=== PATIENT | male | born 1970 | race Caucasian/White ===

== ENCOUNTER 2019-03-15 05:00 | Emergency (ER) | payer OTHER ==
[2019-03-15] MEDS ORDERED: ASPIRIN 81 MG TABLET, CHEWABLE PO ONE (05:31)
[2019-03-15] MEDS ORDERED: NORMAL SALINE 1000 ML 1,000 ML IV PRN (05:31)
[2019-03-15] MEDS ORDERED: ENOXAPARIN SODIUM INJ 30 MG/0.3 ML DISP.SYRIN IV ONE (05:31)
[2019-03-15] MEDS ORDERED: TENECTEPLASE INJ 50 MG KIT IV ONE ×2 (05:31→10:45)
[2019-03-15] MEDS ORDERED: CLOPIDOGREL BISULFATE 300 MG TABLET PO ONE (05:31)
[2019-03-15] MEDS ORDERED: MORPHINE SULFATE 10 MG/ML INJ IV ONE ×2 (05:31→06:02)
[2019-03-15 05:33] LABS: ABSOLUTE BASOPHILS # (AUTO) 0.1 10^3/uL (0.0-0.2); ABSOLUTE EOSINOPHILS # (AUTO) 0.3 10^3/uL (0.0-0.6); ABSOLUTE LYMPHOCYTES (AUTO) 4.2 10^3/uL (0.5-4.7); ABSOLUTE MONOCYTES (AUTO) 0.8 10^3/uL (0.1-1.4); ABSOLUTE NEUT (AUTO) 4.7 10^3/uL (1.7-8.2); BASOPHILS % (AUTO) 0.6 % (0-2); EOSINOPHILS % (AUTO) 2.6 % (0-6); HEMATOCRIT 47.5 % (37.9-51.0); HEMOGLOBIN 16.4 g/dL (13.5-17.0); LYMPHOCYTES % (AUTO) 42.1 % (13-45); MEAN CORPUSCULAR HEMOGLOBIN 31.3 pg (27.0-33.4); MEAN CORPUSCULAR HGB CONC 34.5 g/dL (32.0-36.0); MEAN CORPUSCULAR VOLUME 91 fl (80-97); PLATELET COUNT 224 10^3/uL (150-450); RED BLOOD COUNT 5.23 10^6/uL (4.35-5.55); RED CELL DISTRIBUTION WIDTH 13.2 % (11.5-14.0); SEGMENTED NEUTROPHILS % (AUTO) 46.7 % (42-78); TOTAL CELLS COUNTED % (AUTO) 100 %
--- NOTE | 2019-03-15 05:38 | ER Document Report ---
ED Cardiac - General Chief Complaint: Chest Pain > 30 Stated Complaint: CHEST PAIN Time Seen by Provider: 03/15/19 05:25 Primary Care Provider: CORNELIUS ZALDIVAR [NO EZRA MD] - Follow up as needed Mode of Arrival: Ambulatory Information source: Patient - HPI Patient complains to provider of: Chest pain, Chest tightness, Shortness of breath Was the onset of pain: Gradual Is the pain a: New problem Chest pain location: Substernal Quality of pain: Severe, Heaviness, Pressure Chest pain radiation location: Left jaw, Right jaw Severity now: Severe Severity at worst: Severe Pain level currently: 5 Chest pain precipitating factors: Earlier last p.m. while walking in the yard patient noted that he did not feel well and could not describe to his the reason for not feeling well at that time. Cardiac risk factors: Diabetes, Hypertension Positive cardiac history: No Associated symptoms: Diaphoresis, Jaw pain Exacerbated by: Other - Symptoms are exacerbated earlier in the evening by walking and worsen while in bed at rest Relieved by: Nothing Similar symptoms previously: No Recently seen / treated by doctor: No - Related Data Allergies/Adverse Reactions: No Known Allergies Allergy (Verified 03/15/19 05:34) Past Medical History - Social History Smoking Status: Never Smoker Lives with: Family Family History: Reviewed & Not Pertinent Patient has suicidal ideation: No Patient has homicidal ideation: No - Medical History Notes: History of hypertension and diabetes mellitus. Patient also is obese. - Past Medical History Cardiac Medical History: Reports: None Pulmonary Medical History: Reports: None Physical Exam - Vital signs Vitals: Pulse Ox 100 03/15/19 05:18 Interpretation: Normal - Notes Notes: Significant severe distress with chest pain. Sweating on arrival. - General General appearance: Appears well, Alert - HEENT Head: Normocephalic, Atraumatic Eyes: Normal Pupils: PERRL - Respiratory Respiratory status: No respiratory distress Chest status: Nontender Breath sounds: Normal Chest palpation: Normal - Cardiovascular Rhythm: Regular Heart sounds: Normal auscultation Murmur: No - Abdominal Inspection: Normal Distension: No distension Bowel sounds: Normal Tenderness: Nontender Organomegaly: No organomegaly - Back Back: Normal, Nontender - Extremities General upper extremity: Normal inspection, Nontender, Normal color, Normal ROM, Normal temperature General lower extremity: Normal inspection, Nontender, Normal color, Normal ROM, Normal temperature, Normal weight bearing. No: Yeny's sign - Neurological Neuro grossly intact: Yes Cognition: Normal Orientation: AAOx4 Olivia Coma Scale Eye Opening: Spontaneous Olivia Coma Scale Verbal: Oriented Olivia Coma Scale Motor: Obeys Commands Mcdonald Coma Scale Total: 15 Speech: Normal Motor strength normal: LUE, RUE, LLE, RLE Sensory: Normal - Psychological Associated symptoms: Normal affect, Normal mood - Skin Skin Temperature: Warm Skin Moisture: Diaphoretic - Ming diaphoretic Skin Color: Normal Course - Re-evaluation Re-evalutation: 03/15/19 06:01 Currently still having chest pain about 4-5 out of 10. - Vital Signs Vital signs: Temp Pulse Resp BP Pulse Ox 100 03/15/19 05:18 - Laboratory Result Diagrams: 03/15/19 05:23 03/15/19 05:23 - Diagnostic Test Radiology reviewed: Pending, Image reviewed - EKG Interpretation by Me Additional EKG results interpreted by me: 03/15/19 06:02 12-lead EKG done on 03/15/2019 at 507. Normal sinus rhythm with intraventricular conduction delay. Borderline ST depressions. In the lateral leads inferior leads III and aVF with greater than 1-1/2 ST elevations, with reciprocal changes of ST depression in leads I and aVL with flipped T wave in aVl Chest x-ray shows cardiomegaly with vascular congestive markings no widened mediastinum. Critical Care Note - Critical Care Note Total time excluding time spent on procedures (mins): 35 Discharge - Discharge Clinical Impression: Acute ST elevation myocardial infarction (STEMI) of inferior wall Condition: Critical Disposition: [facility] Referrals: LOCALMD,NO [NO LOCAL MD] - Follow up as needed
[2019-03-15] MEDS ORDERED: ONDANSETRON HCL INJ/PF 4 MG/2 ML SDV ONE (05:45)
[2019-03-15] MEDS ORDERED: ENOXAPARIN SODIUM INJ 60 MG/0.6 ML DISP.SYRIN SUBCUT ONE (05:49)
[2019-03-15] MEDS ORDERED: ONDANSETRON HCL INJ/PF 4 MG/2 ML SDV IV ONE (05:54)
[2019-03-15 05:56] LABS: ALBUMIN 4.7 g/dL (3.5-5.0); ALKALINE PHOSPHATASE 83 U/L (38-126); ANION GAP 16 (5-19); ASPARTATE AMINO TRANSFERASE 27 U/L (17-59); BILIRUBIN,DIRECT 0.3 mg/dL (0.0-0.4); BILIRUBIN,TOTAL 0.7 mg/dL (0.2-1.3); BLOOD UREA NITROGEN 15 mg/dL (7-20); CALCIUM 10.1 mg/dL (8.4-10.2); CARBON DIOXIDE 24 mmol/L (22-30); CHLORIDE 101 mmol/L (98-107); CREATINE KINASE 90 U/L (55-170); GLUCOSE 289 mg/dL (75-110); POTASSIUM 4.2 mmol/L (3.6-5.0); TOTAL PROTEIN 7.8 g/dL (6.3-8.2)
[2019-03-15 05:58] VITALS: BP 134/76
[2019-03-15 06:04] LABS: CREATINE KINASE MB 1.29 ng/mL (<4.55)
[2019-03-15 06:12] LABS: INTERNATIONAL RATION (INR) 0.93; PROTHROMBIN TIME 12.5 SEC (11.4-15.4)
[2019-03-15 06:13] LABS: PARTIAL THROMBOPLASTIN TIME 24.8 SEC (23.5-35.8)
[2019-03-15 06:14] LABS: TROPONIN I < 0.012 ng/mL
--- NOTE | 2019-03-15 06:14 | RADIOLOGY REPORT (SQ) ---
EXAM DESCRIPTION: XR CHEST 1 VIEW COMPLETED DATE/TME: 03/15/2019 05:32 CLINICAL HISTORY: 49 years, Male, Chest Pain r/o [place] COMPARISON: None. NUMBER OF VIEWS: 1 TECHNIQUE: Portable chest LIMITATIONS: None. FINDINGS: The heart size is normal. Lungs are clear. No pneumothorax IMPRESSION: Negative chest copyright 2010 [employer]- All Rights Reserved
[2019-03-15] MEDS ORDERED: CLOPIDOGREL BISULFATE 300 MG TABLET ONE (10:45)
[2019-03-15] MEDS ORDERED: ASPIRIN 81 MG TABLET, CHEWABLE ONE (10:45)
[2019-03-15] MEDS ORDERED: ENOXAPARIN SODIUM INJ 30 MG/0.3 ML DISP.SYRIN ONE (10:45)
--- NOTE | 2019-03-15 19:36 | EKG REPORT ---
SEVERITY:- ABNORMAL ECG - SINUS RHYTHM NONSPECIFIC INTRAVENTRICULAR CONDUCTION DELAY BORDERLINE ST DEPRESSION, LATERAL LEADS : Confirmed by: Tessa Edwards MD 15-Mar-2019 19:35:09
== END 2019-03-15 06:02 | disposition short-term general hospital (02) ==
LOC: ER 05:00
DX: I21.09 ST elevation (STEMI) myocardial infarction involving other coronary artery of anterior wall (principal); R07.9 Chest pain, unspecified; R06.02 Shortness of breath; R68.84 Jaw pain
CPT/HCPCS: 93005; 99291; 96374; 96375; 36415; 82553; 82550; 85025; 85610; 85730; 80053; 84484; 71045; 93010; J3101; J3490; J2270; J2405; J1650 ×2; J7030